=== PATIENT | male | born 1945 | race Caucasian/White ===

== ENCOUNTER → 2019-09-08 09:50 | Outpatient (BNVA) | payer MEDICARE, OTHER, SELFPAY | PROVIDERS: Family Provider Family Medicine; PCP Family Medicine; Visit Provider Urology | DX: N40.0 Benign prostatic hyperplasia without lower urinary tract symptoms (principal); Z12.5 Encounter for screening for malignant neoplasm of prostate; Z87.442 Personal history of urinary calculi | CPT/HCPCS: 81001 ==

== ENCOUNTER 2020-11-01 10:03 | Outpatient (CLI) | payer MEDICARE, OTHER, SELFPAY ==
--- NOTE | 2020-11-01 10:00 | XR_ITS ---
WS: [id number] KUB, AP view, 11/01/2020 Clinical Data: Z87.442 - Personal history of urinary calculi Comparison: KUB, 09/08/2018. Findings: No abnormal intraabdominal masses or calcifications are seen. There is no dilatated small bowel or ev idence of obstruction. There is fecal material throughout the colon. There are phleboliths in the true pelvis. There are pro static calcifications. XR/XR KUB [id number] Impression: Negative KUB.
== END 2020-11-01 10:04 | disposition home or self-care (01) ==
LOC: RAD 10:11
PROVIDERS: PCP Family Medicine; Visit Provider Urology
DX: Z87.442 Personal history of urinary calculi (principal)
CPT/HCPCS: 74018; 81003

== ENCOUNTER → 2021-07-03 07:52 | Outpatient (BNVA) | payer MEDICARE, OTHER, SELFPAY | PROVIDERS: PCP Family Medicine; Visit Provider Specialist | DX: G25.0 Essential tremor (principal); Z87.891 Personal history of nicotine dependence | CPT/HCPCS: 99204 ==

== ENCOUNTER → 2021-10-24 09:36 | Outpatient (BNVA) | payer MEDICARE, OTHER, SELFPAY | PROVIDERS: PCP Family Medicine; Visit Provider Specialist | DX: G25.0 Essential tremor (principal); Z87.891 Personal history of nicotine dependence | CPT/HCPCS: 99213; 99214 ==

== ENCOUNTER 2021-11-01 10:18 | Outpatient (CLI) | payer MEDICARE, OTHER, SELFPAY ==
--- NOTE | 2021-11-01 10:15 | XR_ITS ---
WS: [id number] KUB, AP view, 11/01/2021 Clinical Data: History of Kidney Stones Comparison: KUB, 11/01/2020. Findings: No abnormal intraabdominal masses or calcifications are seen. There is no dilatated small bowel or ev idence of obstruction. There are phleboliths in the true pelvis. The bladder is partly full. There is a minimal dextroscolio sis of the lumbar spine. XR/XR KUB 27795 Impression: Negative KUB.
== END 2021-11-01 10:19 | disposition home or self-care (01) ==
PROVIDERS: PCP Family Medicine; Visit Provider Urology
DX: Z87.442 Personal history of urinary calculi (principal); N40.0 Benign prostatic hyperplasia without lower urinary tract symptoms
CPT/HCPCS: 74018; 81003

== ENCOUNTER → 2022-04-23 10:07 | Outpatient (BNVA) | payer MEDICARE, OTHER, SELFPAY | PROVIDERS: PCP Family Medicine; Visit Provider Specialist | DX: G25.0 Essential tremor (principal); M54.9 Dorsalgia, unspecified | CPT/HCPCS: 99213 ==

== ENCOUNTER → 2022-05-14 10:07 | Outpatient (BNVA) | payer MEDICARE, OTHER, SELFPAY | PROVIDERS: PCP Family Medicine; Visit Provider Urology | DX: N40.0 Benign prostatic hyperplasia without lower urinary tract symptoms (principal); N20.9 Urinary calculus, unspecified | CPT/HCPCS: 51741; 51798; 81003; 99213 ==

== ENCOUNTER → 2022-06-28 10:50 | Outpatient (BNVA) | payer MEDICARE, OTHER, SELFPAY | PROVIDERS: PCP Family Medicine; Visit Provider Urology | DX: N40.0 Benign prostatic hyperplasia without lower urinary tract symptoms (principal); N20.9 Urinary calculus, unspecified | CPT/HCPCS: 51798; 99214 ==

== ENCOUNTER 2022-07-03 14:31 | Observation (INO) | payer MEDICARE, OTHER, SELFPAY ==
[2022-07-02 08:48] VITALS: BMI 31.6
--- NOTE | 2022-07-02 08:55 | ECG_ITS ---
[facility] Test Date: 2022-07-02 Pat Name: So Lag[place] Department: Room: Gender: Male Program Advisor: : 1945 Requested By: Chapo Hernández Order Number: [id number] Boyd MD: Ashanti Obando M.D. Measurements Intervals [place] Rate: 69 P: -19 [place]: 203 QRS: -71 QRSD: 104 T: 161 QT: 396 QTc: 426 Interpretive Statements SINUS RHYTHM PATTERN CONSISTENT WITH PULMONARY DISEASE LEFT ANTERIOR FASCICULAR BLOCK [QRS AXIS <= -45, QR IN I, RS IN II] NONSPECIFIC ST & T-WAVE ABNORMALITY No previous ECG available for comparison Electronically Signed On 07-03-2022 0:10:28 ELECTRONIC SYSTEMS SECURITY ASSESSMENT by Ashanti Obando M.D. [id number]
[2022-07-02 09:24] LABS: Basophils # 0.1 10^3/uL (0.0-0.1); Basophils % 0.6 %; Eosinophils # 0.3 10^3/uL (0.0-0.8); Eosinophils % 3.2 %; Hematocrit 45.2 % (42.0-52.0); Hemoglobin 14.9 g/dL (11.7-16.6); Lymphocytes # 2.2 10^3/uL (0.8-4.8); Lymphocytes % 25.6 %; Mean Corpuscular Volume 97.2 fl (80-94); Mean Platelet Volume 10.3 fL (7.4-10.4); Monocytes % 11.2 %; Neutrophils # 5.02 10^3/uL (1.8-7.7); Neutrophils % 59.2 %; Nucleated Red Blood Cells % 0 %; Platelet Count 192 10^3/cmm (130-400); Red Blood Count 4.65 10^6/uL (4.1-5.3); Red Cell Distribution Width 12.7 % (12.1-15.1); White Blood Count 8.5 10^3/uL (4.0-10.0)
[2022-07-02 09:32] LABS: Alanine Aminotransferase 18 U/L (0-41); Alkaline Phosphatase 82 U/L (40-130); Anion Gap 13.1 (5-19); Aspartate Amino Transferase 12 U/L (0-40); Blood Urea Nitrogen 30 mg/dL (8-23); Calcium 9.6 mg/dL (8.5-10.5); Carbon Dioxide 30 mmol/L (22-29); Chloride 99 mmol/L (98-107); Globulin 3.4 g/dL (1.3-4.6); Glucose 146 mg/dL (65-115); Osmolality Calculated 295 mOsm/kg (285-295); Potassium 4.1 mmol/L (3.5-5.1); Sodium 138 mmol/L (136-145); Total Bilirubin 0.3 mg/dL (0.15-1.2); Total Protein 7.4 g/dL (6.6-8.7)
--- NOTE | 2022-07-02 09:40 | P.ANESASSM_ITS ---
Pre-Anesthetic Assessment Height/Weight: Height 1.85 m Weight 108.862 kg Operation Date: 07/03/22 10:00 Proposed Procedures s CYSTOSCOPY TRANSURETHRAL RESECTION/VAPORIZATION PROSTATE 60129,N40.0(Not Applicable) - Chapo Hernández MD p CYSTOSCOPY TRANSURETHRAL RESECTION/VAPORIZATION PROSTATE 62258 N40.0(Not Applicable) - Chapo Hernández MD Familial anesthetic complications: none Social Tobacco and No alcohol occassional cigar use ( I don't inhale ) Exam alert, oriented x 3, clear to auscultation bilaterally and regular rate & rhythm Airway Mallampati: Class II Dentition: partials Pulmonary None reported CV/HEM Hypertension and Myocardial Infarction (20 years ago - balloon angiolasty, no further issues able to acheive 4 METS without symptoms) None reported Hepatic None reported GI None reported Metabolic Diabetes Mellitus (very well-controlled A1C < 6) and Hyperlipidemia Anesthetic Plan ASA status: 3 Anesthesia: General Risk of > 500 ml blood loss (7ml/kg in children): No Medications/Allergies Home Medications Medication Instructions Recorded Confirmed Last Taken Type aspirin 81 mg tablet,delayed 81 mg PO DAILY 09/08/19 07/02/22 06/28/22 History release (Adult Low Dose Aspirin) rosuvastatin 40 mg tablet 40 mg PO DAILY 09/08/19 07/02/22 07/01/22 History finasteride 5 mg tablet 5 mg PO DAILY 07/02/22 07/02/22 07/01/22 History losartan 50 mg-hydrochlorothiazide 0.5 tab PO PRN 07/02/22 07/02/22 07/01/22 History 12.5 mg tablet metformin 500 mg tablet 500 mg PO DAILY 07/02/22 07/02/22 07/02/22 History primidone 50 mg tablet 100 mg PO BID 07/02/22 07/02/22 07/02/22 History tamsulosin 0.4 mg capsule 0.4 mg PO DAILY 07/02/22 07/02/22 07/02/22 History Allergies Allergy/AdvReac Type Severity Reaction Status Date / Time piroxicam [From Feldene] Allergy unknown Verified 06/28/22 11:04 [facility] Anesthesia Medical History BPH loc w/o ur obs/LUTS Status post extracorporeal shock wave therapy Ureteral calculus Surgical History H/O colonoscopy H/O shoulder surgery right History of angioplasty x3 History of hand surgery left hand Family History Mother , at age 91 Thyroid disease Heart disease Myocardial infarction acute Father No problems noted. Social History Smoking and tobacco status: current some day smoker Alcohol intake: current Alcohol intake frequency: holidays/special occasions only Adopted: No Caregiver/support person: No Lives independently: No Household members: spouse Marital status: Current occupational status: retired History of recent travel: No Current gender identity: Male Data Anesthesia 07/02/22 09:01 07/02/22 09:01 Short CBC 07/02/22 Range/Units 09:01 WBC 8.5 (4.0-10.0) 10^3/uL Hgb 14.9 (11.7-16.6) g/dL Hct 45.2 (42.0-52.0) % MCV 97.2 H (80-94) fl Plt Count 192 (130-400) 10^3/cmm Neut % (Auto) 59.2 % Neut # (Auto) 5.02 (1.8-7.7) 10^3/uL BMP 07/02/22 09:01 Sodium 138 Potassium 4.1 Chloride 99 Carbon Dioxide 30 H BUN 30 H Creatinine 1.2 Glucose 146 H Calcium 9.6 Liver Function 07/02/22 Range/Units 09:01 Total Bilirubin 0.3 (0.15-1.2) mg/dL AST 12 (0-40) U/L ALT 18 (0-41) U/L Alkaline Phosphatase 82 (40-130) U/L Albumin 4.0 (3.5-5.2) g/dL Cardiac Studies: No Data to Display
[2022-07-03] VITALS (16 sets, daily range): BP systolic 119–167; BP diastolic 67–100; PULSE 49–79; RESP 16–18; TEMP 36.1–36.6; O2SAT 94–99
--- NOTE | 2022-07-03 08:44 | P.ANESUD_ITS ---
Pre-Anesthetic Update Pre-Anesthetic Assessment: Date of Surgery/Procedure: 07/03/22 Preop Heather gnosis: Refractory BPH/obstruction Proposed Procedure: Operation Date: 07/03/22 10:00 Proposed Procedures s CYSTOSCOPY TRANSURETHRAL RESECTION/VAPORIZATION PROSTATE 37997,N40.0(Not Applicable) - Chapo Hernández MD p CYSTOSCOPY TRANSURETHRAL RESECTION/VAPORIZATION PROSTATE 81711 N40.0(Not Applicable) - Chapo Hernández MD Any changes to Pre-Anesthetic Assessment?: No Last Intake: Intake Last Liquid Date 07/02/22 Last Liquid Time 22:00 Last Solid Date 07/02/22 Last Solid Time 16:00 Labs Last 48hrs: Short CBC 07/02/22 Range/Units 09:01 WBC 8.5 (4.0-10.0) 10^3/ uL Hgb 14.9 (11.7-16.6) g/dL Hct 45.2 (42.0-52.0) % MCV 97.2 H (80-94) fl Plt Count 192 (130-400) 10^3/c mm Neut % (Auto) 59.2 % Neut # (Auto) 5.02 (1.8-7.7) 10^3/u L BMP 07/02/22 09:01 Sodium 138 Potassium 4.1 Chloride 99 Carbon Dioxide 30 H BUN 30 H Creatinine 1.2 Glucose 146 H Calcium 9.6 Liver Function 07/02/22 Range/Units 09:01 Total Bilirubin 0.3 (0.15-1.2) mg/dL AST 12 (0-40) U/L ALT 18 (0-41) U/L Alkaline Phosphata se 82 (40-130) U/L Albumin 4.0 (3.5-5.2) g/dL Vitals: Temperature 97.7 F 07/03/22 08:32 Temperature Source Temporal Artery S can 07/03/22 08:32 Pulse Rate 62 07/03/22 08:32 Respiratory Rate 16 07/03/22 08:32 Blood Pressure 133/78 07/03/22 08:32 Blood Pressure Karime n 96 07/03/22 08:32 Pulse Oximetry 97 07/03/22 08:32 Oxygen Delivery Me thod 07/03/22 08:32 Exam: Pre-Anes Outpt Exam: alert, oriented x 3, clear to auscultation bilaterally and regular rate & rhythm Cardiac Studies: No Data to Display
[2022-07-03] MEDS: sodium chloride 0.9% 1,000 ML 30 ML IV (08:45)
[2022-07-03 08:46] LABS: Glucose Point of Care 143 mg/dL (70-110)
[2022-07-03] MEDS: levofloxacin-dextrose 5 % 500 MG/100 ML PREMIX 100 MG IV (09:02)
--- NOTE | 2022-07-03 09:03 | P.HPUD_ITS ---
Surgery/Procedure H&P Update DATE OF PROCEDURE: July 03, 2022 DATE H&P PERFORMED: 06/28/22 H&P UPDATE INFORMATION: I have reviewed H&P completed within last 30 days, I have examined patient prior to procedure, No changes to prior documentation and H&P is in [facility] EMR on date indicated PREOP DIAGNOSIS: Refractory BPH/obstruction PLANNED PROCEDURE: Operation Date: 07/03/22 10:00 Proposed Procedures s CYSTOSCOPY TRANSURETHRAL RESECTION/VAPORIZATION PROSTATE 67860,N40.0(Not Applicable) - Chapo Hernández MD p CYSTOSCOPY TRANSURETHRAL RESECTION/VAPORIZATION PROSTATE 21865 N40.0(Not Applicable) - Chapo Hernández MD
--- NOTE | 2022-07-03 09:03 | W.PM.OPSUD ---
Surgery/Procedure H&P Update DATE OF PROCEDURE: July 03, 2022 DATE H&P PERFORMED: 06/28/22 H&P UPDATE INFORMATION: I have reviewed H&P completed within last 30 days, I have examined patient prior to procedure, No changes to prior documentation and H&P is in [facility] EMR on date indicated PREOP DIAGNOSIS: Refractory BPH/obstruction PLANNED PROCEDURE: Operation Date: 07/03/22 10:00 Proposed Procedures s CYSTOSCOPY TRANSURETHRAL RESECTION/VAPORIZATION PROSTATE 44991,N40.0(Not Applicable) - Chapo Hernández MD p CYSTOSCOPY TRANSURETHRAL RESECTION/VAPORIZATION PROSTATE 59902 N40.0(Not Applicable) - Chapo Hernández MD
--- NOTE | 2022-07-03 09:12 | PM.OP ---
Operative Report Date of procedure: July 03, 2022 Pre-op diagnosis: Refractory BPH/obstruction Post-op diagnosis: Refractory BPH/obstruction Procedure done: 1. Cystoscopy, transurethral resection/vaporization prostate Specimens removed/disposition: Prostate sampling Pathology: Prostate sampling Surgeon: Edgar Estimated blood loss: Minimal Urine output: Not measured Complications: None Findings: Anesthesia: General Condition: Stable Disposition: PACU Intraoperative findings: Trilobar enlargement of the prostate With large intravesically protruding median lobe Wide open prostatic fossa at the completion of the procedure with good hemostasis and no residual/retained chips. 22 Salvadorean CBI catheter left indwelling Brief History: Alexandre yusuf pleasant 77-year-old white male with longstanding history of progressive bladder outlet obstructive symptoms and cystoscopically demonstrated trilobar enlargement the prostate with a very large intravesically protruding median lobe. Had been on medical therapy for some time including maximal medical therapy with DOUBLE dose TAMSULOSIN and finasteride Ultimately he elected to proceed with surgical intervention Procedure: After routine preoperative evaluation examination and obtaining of informed consent he was taken to the operating suite on 07/03/2022 where general anesthesia was administered without difficulty after appropriate timeout was performed, SCDs confirmed to be functioning, preoperative antibiotics administered, beta-coy protocol confirmed. Prepped and draped in usual sterile fashion in dorsolithotomy position paying careful attention to avoiding pressure points. 21 Salvadorean cystoscope with 30 degree lens was introduced into the urethra meatus and advanced into the bladder under videoscopy. The bladder was systematically examined. Orifices were identified well away from the bladder neck. Verumontanum was easily identified. Trilobar enlargement was confirmed with a large intravesically protruding median lobe. Urethra calibrated with [place] sounds and easily accommodated 30 Salvadorean. 2% lidocaine jelly was instilled into the urethr and a 25 Salvadorean continuous-flow resectoscope sheath with visual obturator in place was advanced into the bladder without difficulty. The gyrus bipolar system was utilized with super loop and button probe. Initial resection was begun at the bladder neck with resection of the intravesical protruding ball-valve median lobe. The resection was taken down to the bladder neck. Hemostasis was obtained at that point. Circumferential of the remaining intravesically protruding prostatic tissue was then resected down to the circular fibers of the bladder neck. The left lateral lobe from the bladder neck out to but not distal to the verumontanum was then resected from the 12:00 down to the 5 o'clock position in the right lateral lobe in the same longitudinal extent and depth from the 12:00 to 7 o'clock position. The floor the prostate was then harvested. The button probe was used intermittently for vaporization and improvement hemostasis. Prostatic fossa was inspected with the button probe for meticulous hemostasis, further vaporization of tissue. All chips were confirmed to be evacuated from the bladder (Isentropic evacuator). Hemostasis was confirmed to be good. Orifices and tissue distal to the verumontanum was not involved in the resection. Bladder was drained with a 22 Salvadorean three-way Bejarano catheter which irrigated well. 30 cc placed in the balloon and light CBI was initiated. Tolerated procedure well without complications and was awakened in the operating room and returned to the recovery room in stable condition. PLANS: 1. Admit to observation status 2. Anticipate removing the catheter tomorrow and if voids well with no significant bleeding discharge to home.
[2022-07-03] MEDS: lidocaine 2% Urojet 20 mL TOPICAL (09:48)
--- NOTE | 2022-07-03 13:49 | SUR.PHASEI ---
report given to STEPHEN Harrington on med surg. pt updated. at bedside. room isn't clean at this time.
[2022-07-03] MEDS: tamsulosin 0.4 mg Capsule PO (15:00)
[2022-07-03] MEDS: finasteride 5 mg Tablet PO (15:00)
--- NOTE | 2022-07-03 16:33 | ANE.PACU2 ---
Inpatient post-anesthesia follow up: Airway intact: Yes Vital signs: Temperature 97.2 F Pulse Rate 60 Respiratory Rate 17 Blood Pressure 136/78 Pulse Oximetry 99 Oxygen Delivery Me thod Room Air Oxygen Flow Rate Fraction of Inspir ed Oxygen Hydration adequate: Yes Nausea and vomiting: No Pain level: 1 Mental status: Baseline
[2022-07-03] MEDS: primidone 50 mg Tablet 100 MG PO (17:33)
[2022-07-03] MEDS: docusate sodium 100 mg Capsule PO (17:33)
[2022-07-03 21:08] LABS: Glucose Point of Care 198 mg/dL (70-110)
[2022-07-03] MEDS: sodium chloride 0.9% 1,000 ML 50 ML IV (22:25)
[2022-07-04] VITALS: BP 105/65; PULSE 68; RESP 17; TEMP 36.4; O2SAT 96
[2022-07-04 04:09] VITALS: BP 122/71; PULSE 68; RESP 15; TEMP 36.6; O2SAT 96
[2022-07-04 07:26] VITALS: BP 123/77; PULSE 67; RESP 14; TEMP 36.4; O2SAT 94
[2022-07-04] MEDS: docusate sodium 100 mg Capsule PO (08:54)
[2022-07-04] MEDS: atorvastatin 40 mg Tablet PO (08:54)
[2022-07-04] MEDS: primidone 50 mg Tablet 100 MG PO (08:54)
[2022-07-04] MEDS: tamsulosin 0.4 mg Capsule PO (08:54)
[2022-07-04] MEDS: metformin 500 mg Tablet PO (08:54)
[2022-07-04] MEDS: finasteride 5 mg Tablet PO (08:54)
--- NOTE | 2022-07-04 10:58 | PC.CHAP ---
Pastoral Care Encounter/Spiritual Assessment Type of Contact [] Declined tile fitter visit [] Patient/Family/Request visit [] Outpatient visit [] Follow-up visit [] Physician referral [] Code/Alert [x] Routine visit [] Staff referral [] Actively dying [] Patient sleeping [] Family support [] [] Out of room [] Palliative care [] [x] Receiving care in room [] Pre-surgical visit [] Trauma [] Long length of stay [] ICU visit [] Other: Relational/Emotional Strength [x] Patient feels connected with others/family/visitors/staff [] Distress [] Loneliness/isolation [] Abandonment Spirituality of Patient [x] Person of [place] [] Attends Synagogue of their [place] [x] Believes in Prayer [] Reads Bible or Jewish materials [] There are Spiritual issues to be addressed Information Delivery Analyst Interventions [x] Prayer [x] Active listening [x] Non-anxious presence [x] Spiritual/emotional support [] Crisis/trauma care [x] Spiritual counseling [] Bereavement support [] Provided bereavement packet [] Provided Bible/devotional materials [] Provided toy/stuffed animal, coloring book to patient or family member [] Provided Communion [] Anointing/Adrian [] Salvation [x] Completed spiritual assessment [] Other: Impact on Illness or Injury [] Angry [] Fearful [] Anxious [] Often cries [] Exhaustion [] Unable to work [] Unable to attend cheondoism [] Unable to walk/stand [] Unable to read [] Unable to drive [] Unable to eat/drink [] Unable to sleep [] Unable to be with family [] Patient intubated [] Other: 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
[2022-07-04 11:55] VITALS: BP 121/71; PULSE 69; RESP 15; TEMP 36.4; O2SAT 96
--- NOTE | 2022-07-04 12:35 | PM.DCS ---
Discharge Providers Date of Admission: 07/03/22 14:31 Date of Discharge: July 04, 2022 Attending Provider at Admission: Chapo Hernández MD Attending Provider at Discharge: Chapo Hernández MD Primary Care Provider: Juan José Mclaughlin MD Diagnoses at Discharge Discharge Diagnosis (1) BPH loc w/o ur obs/LUTS: Details from hospital stay: Status post TURP Status: Acute (2) Urolithiasis: Status: Acute Reason for Visit Reason for Visit: N40.0 Hospital Course Hospital Course He was admitted on the day of the procedure which went well. His prostate was very large with a extremely large intravesically protruding median lobe. At the completion the procedure he was wide open, hemostatic with good function of the catheter postop. Bejarano cath removed on postop day #1 but he failed to void spontaneously and the catheter was replaced with about 650 cc. Catheter was left indwelling he was discharged on the afternoon of postop day 1 in stable condition with leg bag and night bag. Plan was for a voiding trial next week with [facility]IC instruction. Physical Exam Narrative: Oriented no acute distress pleasant cooperative throughout exam Unlabored respiration Urine clear Neurologically intact Urinary Catheter Management: 3-way Urethral CBI: Cath Placed During This Visit: yes Reason for Continuing Indwelling Catheter: Perioperative Use in Selected Surgeries Urinary Catheter Date of Insertion: 07/04/22 Urinary Catheter Time of Insertion: 11:06 Discharge Data Studies Completed and Pending Completed Studies During Hospitalization Category Date Time Status Pathology: Surgical [PTH] Routine Pth 07/03/22 10:39 Completed Laboratory Results WBC 8.5 10^3/uL (4.0-10.0) 07/02/22 09:01 RBC 4.65 10^6/uL (4.1-5.3) 07/02/22 09:01 Hgb 14.9 g/dL (11.7-16.6) 07/02/22 09:01 Hct 45.2 % (42.0-52.0) 07/02/22 09:01 MCV 97.2 fl (80-94) H 07/02/22 09:01 MCH 32.0 pg (28.0-34.0) 07/02/22 09:01 MCHC 33.0 g/dL (30.0-36.0) 07/02/22 09:01 RDW 12.7 % (12.1-15.1) 07/02/22 09:01 Plt Count 192 10^3/cmm (130-400) 07/02/22 09:01 MPV 10.3 fL (7.4-10.4) 07/02/22 09:01 Neut % (Auto) 59.2 % 07/02/22 09:01 Lymph % (Auto) 25.6 % 07/02/22 09:01 [place] % (Auto) 11.2 % 07/02/22 09:01 Eos % (Auto) 3.2 % 07/02/22 09:01 Baso % (Auto) 0.6 % 07/02/22 09:01 Neut # (Auto) 5.02 10^3/uL (1.8-7.7) 07/02/22 09:01 Lymph # (Auto) 2.2 10^3/uL (0.8-4.8) 07/02/22 09:01 [place] # (Auto) 1.0 10^3/uL (0.2-0.9) H 07/02/22 09:01 Eos # (Auto) 0.3 10^3/uL (0.0-0.8) 07/02/22 09:01 Baso # (Auto) 0.1 10^3/uL (0.0-0.1) 07/02/22 09:01 Nucleated RBC % (auto) 0 % 07/02/22 09:01 Nucleated RBCs # 0.0 /100WBC 07/02/22 09:01 Sodium 138 mmol/L (136-145) 07/02/22 09:01 Potassium 4.1 mmol/L (3.5-5.1) 07/02/22 09:01 Chloride 99 mmol/L (98-107) 07/02/22 09:01 Carbon Dioxide 30 mmol/L (22-29) H 07/02/22 09:01 Anion Gap 13.1 (5-19) 07/02/22 09:01 BUN 30 mg/dL (8-23) H 07/02/22 09:01 Creatinine 1.2 mg/dL (0.7-1.2) 07/02/22 09:01 GFR Calculation Not Reportable 07/02/22 09:01 Glucose 146 mg/dL (65-115) H 12/13/22 09:01 POC Glucose 198 mg/dL (70-110) H 07/03/22 20:51 Calculated Osmolality 295 mOsm/kg (285-295) 07/02/22 09:01 Calcium 9.6 mg/dL (8.5-10.5) 07/02/22 09:01 Total Bilirubin 0.3 mg/dL (0.15-1.2) 07/02/22 09:01 AST 12 U/L (0-40) 07/02/22 09:01 ALT 18 U/L (0-41) 07/02/22 09:01 Alkaline Phosphatase 82 U/L (40-130) 07/02/22 09:01 Total Protein 7.4 g/dL (6.6-8.7) 07/02/22 09:01 Albumin 4.0 g/dL (3.5-5.2) 07/02/22 09:01 Globulin 3.4 g/dL (1.3-4.6) 07/02/22 09:01 Vitals Last Vital Signs Temp 97.6 F 07/04/22 11:55 Pulse 69 07/04/22 11:55 Resp 15 07/04/22 11:55 BP 121/71 07/04/22 11:55 Pulse Ox 96 07/04/22 11:55 O2 Del Method 07/04/22 11:55 Discharge Plan Discharge Patient Disposition: Home Condition: Stable Prescriptions: New levofloxacin 250 mg tablet 250 mg PO DAILY 4 Days Qty: 10 0RF Continued rosuvastatin 40 mg tablet 40 mg PO DAILY metformin 500 mg Tablet 500 mg PO DAILY losartan-hydrochlorothiazide 50-12.5 mg Tablet 0.5 tab PO PRN primidone 50 mg tablet 100 mg PO BID Rx Instructions: TAKE 2 TABLETS BY MOUTH AT 8 AM THEN TAKE 2 TABLETS BY MOUTH AT 8 PM tamsulosin 0.4 mg capsule 0.4 mg PO DAILY Rx Instructions: TAKE 1 CAPSULE BY MOUTH TWICE DAILY finasteride 5 mg tablet 5 mg PO DAILY Rx Instructions: TAKE 1 TABLET BY MOUTH DAILY Held aspirin [Adult Low Dose Aspirin] 81 mg tablet,delayed release (DR/EC) 81 mg PO DAILY Hold Instructions: Resume on 07/12/22. Discharge Orders: Discharge Order (Routine); Ordered 07/04/22 Ordered By: Chapo Hernández Referrals: Chapo Hernández MD [Physician] - Discharge Diet: Usual diet Discharge Activity: Limit activity as instructed Activity Restrictions/Additional Instructions: 1. Can use leg or night bag which ever you prefer for draining the Bejarano catheter. 2. Drink enough fluids to keep the urine relatively clear. It should not surprise you if it gets more bloody when you are active. 3. Voiding trial will be scheduled for late next week. We will also training on self-catheterization technique at that time as we discussed. 4. 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
--- NOTE | 2022-07-04 13:31 | PC.NURSE ---
Patient education done with patient and spouse at bedside with leg bag provided. Patient teach back with snow and leg back with care. Verbally acknowledges discharge plans and follow up. All questions answered at this time.
[2022-07-04 13:32] VITALS: BP 121/71; PULSE 69; RESP 15; TEMP 36.4; O2SAT 96
== END 2022-07-04 13:33 | disposition home or self-care (01) ==
LOC: MEDSURG 07-04 02:45
PROVIDERS: Admitting Provider Urology; PCP Family Medicine; Visit Provider Urology
PROC: 0TJB8ZZ Inspection of Bladder, Via Natural or Artificial Opening Endoscopic (ICD-10-PCS; CPT 52000; principal; 2022-07-03 09:50)
PROC: 0VT08ZZ Resection of Prostate, Via Natural or Artificial Opening Endoscopic (ICD-10-PCS; CPT 52601; 2022-07-03 09:50)
DX: N40.1 Benign prostatic hyperplasia with lower urinary tract symptoms (principal); N13.8 Other obstructive and reflux uropathy; I10 Essential (primary) hypertension; I25.2 Old myocardial infarction; E11.9 Type 2 diabetes mellitus without complications; E78.5 Hyperlipidemia, unspecified; Z79.82 Long term (current) use of aspirin; Z79.84 Long term (current) use of oral hypoglycemic drugs; F17.210 Nicotine dependence, cigarettes, uncomplicated
CPT/HCPCS: 52601; 36415; 36416; 51702; 80053; 82962; 85025; 88305; 93005; G0378; J1100; J1956; J2405; J2704; J2710; J3010; J3490; J7030

== ENCOUNTER → 2022-07-17 11:52 | Outpatient (BNVA) | payer MEDICARE, OTHER, SELFPAY | PROVIDERS: PCP Family Medicine; Visit Provider Urology | DX: Z98.890 Other specified postprocedural states (principal); N20.9 Urinary calculus, unspecified; N40.0 Benign prostatic hyperplasia without lower urinary tract symptoms | CPT/HCPCS: 99024 ==

== ENCOUNTER → 2022-10-24 09:25 | Outpatient (BNVA) | payer MEDICARE, OTHER, SELFPAY | PROVIDERS: PCP Family Medicine; Visit Provider Urology | DX: N40.0 Benign prostatic hyperplasia without lower urinary tract symptoms (principal); N20.9 Urinary calculus, unspecified | CPT/HCPCS: 51798; 99213 ==

== ENCOUNTER → 2023-04-23 09:26 | Outpatient (BNVA) | payer MEDICARE, OTHER, SELFPAY | PROVIDERS: PCP Family Medicine; Visit Provider Specialist | DX: G25.0 Essential tremor | CPT/HCPCS: 99213 ==

== ENCOUNTER → 2023-06-10 09:07 | Outpatient (BNVA) | payer MEDICARE, OTHER, SELFPAY | PROVIDERS: PCP Family Medicine; Visit Provider Specialist | DX: G25.0 Essential tremor (principal) | CPT/HCPCS: 99213 ==

== ENCOUNTER → 2024-06-15 12:55 | Outpatient (BNVA) | payer MEDICARE, OTHER, SELFPAY | PROVIDERS: PCP Family Medicine; Visit Provider Specialist | DX: R25.1 Tremor, unspecified (principal); R03.0 Elevated blood-pressure reading, without diagnosis of hypertension | CPT/HCPCS: 99214 ==

== ENCOUNTER → 2024-06-30 09:13 | Outpatient (BNVA) | payer MEDICARE, OTHER, SELFPAY | PROVIDERS: PCP Family Medicine; Referring Provider Family Medicine; Visit Provider Dermatology | DX: L82.1 Other seborrheic keratosis (principal); C44.319 Basal cell carcinoma of skin of other parts of face | CPT/HCPCS: 13132; 17311; 99202 ==

== ENCOUNTER → 2024-07-02 11:01 | Outpatient (BNVA) | payer MEDICARE, OTHER, SELFPAY | PROVIDERS: PCP Family Medicine; Visit Provider Dermatology | DX: Z48.1 Encounter for planned postprocedural wound closure (principal) | CPT/HCPCS: 15240 ==

== ENCOUNTER → 2024-07-29 10:50 | Outpatient (BNVA) | payer MEDICARE, OTHER, SELFPAY | PROVIDERS: PCP Family Medicine; Visit Provider Dermatology | DX: Z48.817 Encounter for surgical aftercare following surgery on the skin and subcutaneous tissue (principal); L57.8 Other skin changes due to chronic exposure to nonionizing radiation; L81.4 Other melanin hyperpigmentation; L82.1 Other seborrheic keratosis; Z85.828 Personal history of other malignant neoplasm of skin | CPT/HCPCS: 17000; 17110; 99213 ==

== ENCOUNTER → 2024-11-30 13:26 | Outpatient (BNVA) | payer MEDICARE, OTHER, SELFPAY | PROVIDERS: PCP Family Medicine; Visit Provider Dermatology | DX: L82.1 Other seborrheic keratosis (principal); M72.1 Knuckle pads; L81.4 Other melanin hyperpigmentation; L57.8 Other skin changes due to chronic exposure to nonionizing radiation; Z85.828 Personal history of other malignant neoplasm of skin; B07.8 Other viral warts; R20.8 Other disturbances of skin sensation; L29.89 Other pruritus; L53.8 Other specified erythematous conditions; L82.0 Inflamed seborrheic keratosis; L57.0 Actinic keratosis | CPT/HCPCS: 17000; 17110; 99213 ==

== ENCOUNTER → 2024-12-31 09:39 | Outpatient (BNVA) | payer MEDICARE, OTHER, SELFPAY | PROVIDERS: PCP Family Medicine; Visit Provider Nurse Practitioner Family | DX: L81.4 Other melanin hyperpigmentation (principal); M72.1 Knuckle pads; L57.8 Other skin changes due to chronic exposure to nonionizing radiation; X32.XXXA Exposure to sunlight, initial encounter; Z85.828 Personal history of other malignant neoplasm of skin; B07.8 Other viral warts; R20.8 Other disturbances of skin sensation; R23.8 Other skin changes; L29.89 Other pruritus | CPT/HCPCS: 17110; 99213 ==

== ENCOUNTER → 2025-02-02 14:23 | Outpatient (BNVA) | payer MEDICARE, OTHER, SELFPAY | PROVIDERS: PCP Family Medicine; Visit Provider Nurse Practitioner Family | DX: L57.8 Other skin changes due to chronic exposure to nonionizing radiation (principal); X32.XXXA Exposure to sunlight, initial encounter; L81.4 Other melanin hyperpigmentation; Z85.828 Personal history of other malignant neoplasm of skin; B07.8 Other viral warts; R20.8 Other disturbances of skin sensation; R23.8 Other skin changes; L29.89 Other pruritus | CPT/HCPCS: 17110; 99213 ==

== ENCOUNTER → 2025-03-08 08:01 | Outpatient (BNVA) | payer MEDICARE, OTHER, SELFPAY | PROVIDERS: PCP Family Medicine; Visit Provider Nurse Practitioner Family | DX: L57.8 Other skin changes due to chronic exposure to nonionizing radiation (principal); X32.XXXA Exposure to sunlight, initial encounter; L81.4 Other melanin hyperpigmentation; Z85.828 Personal history of other malignant neoplasm of skin; B07.8 Other viral warts; R20.8 Other disturbances of skin sensation | CPT/HCPCS: 17110; 99213 ==

== ENCOUNTER 2025-03-28 12:33 | Emergency (ER) | payer MEDICARE, OTHER, SELFPAY ==
[2025-03-28 12:39] VITALS: BP 114/76; PULSE 93; RESP 18; TEMP 36.7; O2SAT 92; BMI 32.3
--- NOTE | 2025-03-28 12:41 | XR_ITS ---
WS: [id number] Portable AP upright chest, 03/28/2025 Clinical Data: Weakness Comparison: None. Findings: No nodules, masses or effusions are seen. The heart is normal. The pulmonary vascularity is not increased. No pneumonia or pneumothorax is seen. The aortic arch and descending thoracic aorta show minimal tortuosity. There is an orthopedic anchor in the right humeral head. Monitor leads are on the chest wall. XR/XR chest 1V portable [id number] Impression: Atherosclerosis.
--- NOTE | 2025-03-28 12:44 | W.ED.WEAKNES ---
HPI - Weakness General: Chief complaint: Weakness Stated complaint: weakness Time Seen by Provider: 03/28/25 12:38 History of Present Illness: 79-year-old male with a history of obesity, hypertension, diabetes and coronary artery disease who presents emergency room By ambulance with generalized weakness. He said yesterday about 4:00 he suddenly started feeling very weak. This is a started right after he took his blood pressure meds. Says he has not been able to walk since yesterday because he was so tired and weak. He takes his blood pressure medicine as needed. Says assumedly took the blood pressure medicine yesterday started feeling weak. He has had some cough. He said shortly after he took the medicine when the episode happened he lost control of his bladder. He does have history of BPH. No known fevers. No chest pain. No abdominal pain. No vomiting. Related Data Home Medications ?Medication ?Instructions ?Recorded ?Confirmed aspirin 81 mg tablet,delayed 81 mg PO DAILY 09/08/19 06/15/24 release (Adult Low Dose Aspirin) Held on 07/04/22. Instructions: Resume on 07/12/22. rosuvastatin 40 mg tablet 40 mg PO DAILY 09/08/19 06/15/24 losartan 50 mg-hydrochlorothiazide 0.5 tab PO PRN 07/02/22 06/15/24 12.5 mg tablet metformin 500 mg tablet 500 mg PO DAILY 07/02/22 06/15/24 Previous Rx's ?Medication ?Instructions ?Recorded finasteride 5 mg tablet 5 mg PO DAILY #90 tabs 10/15/22 tamsulosin 0.4 mg capsule 0.4 mg PO DAILY #180 caps 10/24/22 propranolol 20 mg tablet See Rx Instructions .Route 10/07/24 .COMPLEX #270 tabs primidone 50 mg tablet 50 mg PO BID PRN breakthrough 10/08/24 tremors 90 days #180 tabs carbidopa 25 mg-levodopa 100 mg 1 tab PO TID #270 tabs 11/10/24 tablet cefdinir 300 mg capsule 300 mg PO BID 7 days #14 caps 03/28/25 dexamethasone 6 mg tablet 6 mg PO DAILY 5 days #5 tabs 03/28/25 doxycycline hyclate 100 mg capsule 100 mg PO BID 7 days #14 caps 03/28/25 Allergies Allergy/AdvReac Type Severity Reaction Status Date / [facility] Allergy unknown Verified 06/15/24 14:06 Review of Systems Narrative: Constitutional symptoms: Negative except as documented in HPI. Skin symptoms: Negative except as documented in HPI. Eye symptoms: Negative except as documented in HPI. ENMT symptoms: Negative except as documented in HPI. Respiratory symptoms: Negative except as documented in HPI. Cardiovascular symptoms: Negative except as documented in HPI. Gastrointestinal symptoms: Negative except as documented in HPI. Genitourinary symptoms: Negative except as documented in HPI. Musculoskeletal symptoms: Negative except as documented in HPI. Neurologic symptoms: Negative except as documented in HPI. Psychiatric symptoms: Negative except as documented in HPI. Endocrine symptoms: Negative except as documented in HPI. PFSH ED PFSH: Medical History (Updated 03/28/25 @ 15:08 by Grisel Landin MD) Lower urinary tract symptoms (LUTS) HTN (hypertension) Status post extracorporeal shock wave therapy BPH loc w/o ur obs/LUTS Ureteral calculus Surgical History H/O colonoscopy H/O shoulder surgery right History of hand surgery left hand History of angioplasty x3 Family History Mother , at age 91 Thyroid disease Heart disease Myocardial infarction acute Father No problems noted. Social History Smoking and tobacco/nicotine status: former use of tobacco/nicotine Alcohol intake: current Alcohol intake frequency: holidays/special occasions only Substance/Drug Use: never Adopted: No Caregiver/support person: No Lives independently: No Household members: spouse Marital status: Current occupational status: retired Current gender identity: Male Physical Exam Narrative: EXAM NARRATIVE: General: Alert, no acute distress. Skin: Warm, dry. Head: Normocephalic, atraumatic. Neck: Supple, trachea midline. Eye: Extraocular movements are intact. Ears, nose, mouth and throat: mucosa moist. Cardiovascular: Regular, Normal peripheral perfusion. Respiratory: Lungs are clear to auscultation, respirations are non-labored, breath sounds are equal, Symmetrical chest wall expansion. Gastrointestinal: Soft, Nontender, Non distended Musculoskeletal: Normal ROM, no deformity. Neurological: Alert and oriented, No focal neurological deficit observed. Psychiatric: Cooperative, appropriate mood & affect. Course Vital Signs: Vital signs: Vital Signs Temperature 98.1 F 03/28/25 12:39 Pulse Rate 77 03/28/25 15:09 Respiratory Rate 16 03/28/25 15:09 Blood Pressure 120/65 03/28/25 15:09 Pulse Oximetry 94 03/28/25 15:09 Oxygen Delivery Me thod Room Air 03/28/25 15:09 MDM - Weakness Medical Decision Making Medical decision making: Differential diagnosis for patient presenting with generalized weakness including but not limited to and based on the above HPI, review of systems and physical exam: Sepsis. Dehydration. Renal failure. Electrolyte abnormalities. Anemia. Congestive heart failure. Hypotension. Coronary syndrome. Hepatitis. Cirrhosis. Infections such as pneumonia, urinary tract infection, [place] illness, Cellulitis, Viral infections including influenza and Covid-19. Workup: labwork and lab/exam driven imaging ordered to evaluate, rule in and rule out above pathologies. EKG: Time 1252. Rate 89. Normal sinus rhythm, No ST-T changes, no ectopy, normal DC & QRS intervals, This was reviewed and interpreted by myself the ER physician at 1258 Chest x-ray: No acute process. No infiltrate. No pneumothorax. This was reviewed and interpreted by myself the emergency room physician. I also reviewed the radiology report. Lab Review: Laboratory results were reviewed and interpreted by myself the emergency room physician. Mild leukocytosis with white count of 12.5. Slightly left shifted with neutrophil percent of 81%. Flu COVID and RSV are negative. Urinalysis has 2+ bacteria but only 0-5 whites leukocyte esterase is negative. He does have a productive cough at times although his chest x-ray is negative. Urinalysis does show concentration with a specific gravity of 1.024 which would indicate some dehydration. Fluids are being given. Also BUN and creatinine are slightly elevated over his baseline at 15 and 1.1 his creatinine normally runs around 0.6 or 0.7 I reviewed the patient's medical record. 79-year-old male with a history of obesity, hypertension, diabetes and coronary artery disease Reexamination: Patient remained stable. No increased work of breathing. No altered mental status. No focal motor deficits. Assessment and plan: Dehydration Bronchitis Urinary tract infection Generalized weakness ? Normal saline bolus. IV Rocephin and azithromycin. Would cover urinary and lung etiologies of possible infection. Also IV Decadron. Also his weakness could just be related to taking his blood pressure medicine and his blood pressure being lower than it normally is. Iatrogenic in nature. - Discharged home - Discussed plan with patient. Answered any questions. - Evaluation and treatment of this problem were appropriate in the emergency setting. Lab Data 03/28/25 14:08 03/28/25 14:08 Radiology Impressions Chest X-Ray 03/28/25 12:41 Impression: Atherosclerosis. Laboratory Results WBC 12.46 10^3/uL (3.29-11.43) H 03/28/25 14:08 RBC 4.75 10^6/uL (3.85-5.65) 03/28/25 14:08 Hgb 15.00 g/dL (11.27-16.99) 03/28/25 14:08 Hct 44.6 % (37-53) 03/28/25 14:08 MCV 93.9 fl (82-101) 03/28/25 14:08 MCH 31.6 pg (27-33) 03/28/25 14:08 MCHC 33.6 g/dL (30-55) 03/28/25 14:08 RDW 13.7 % (12.1-15.1) 03/28/25 14:08 Plt Count 151 10^3/cmm (157-399) L 03/28/25 14:08 MPV 10.5 fL (7.4-10.4) H 03/28/25 14:08 Neut % (Auto) 80.9 % 03/28/25 14:08 Lymph % (Auto) 7.7 % 03/28/25 14:08 [place] % (Auto) 10.4 % 03/28/25 14:08 Eos % (Auto) 0.1 % 03/28/25 14:08 Baso % (Auto) 0.3 % 03/28/25 14:08 Neut # (Auto) 10.08 10^3/uL (1.8-7.7) H 03/28/25 14:08 Lymph # (Auto) 1.0 10^3/uL (0.8-4.8) 03/28/25 14:08 [place] # (Auto) 1.3 10^3/uL (0.2-0.9) H 03/28/25 14:08 Eos # (Auto) 0.0 10^3/uL (0.0-0.8) 03/28/25 14:08 Baso # (Auto) 0.0 10^3/uL (0.0-0.1) 03/28/25 14:08 Nucleated RBC % (auto) 0 % 03/28/25 14:08 Nucleated RBCs # 0.0 /100WBC 03/28/25 14:08 Sodium 136 mmol/L (136-145) 03/28/25 14:08 Potassium 3.9 mmol/L (3.5-5.1) 03/28/25 14:08 Chloride 99 mmol/L (98-107) 03/28/25 14:08 Carbon Dioxide 24 mmol/L (22-29) 03/28/25 14:08 Anion Gap 16.9 (5-19) 03/28/25 14:08 BUN 15 mg/dL (8-23) 03/28/25 14:08 Creatinine 1.1 mg/dL (0.7-1.2) 03/28/25 14:08 GFR Calculation Not Reportable 03/28/25 14:08 Glucose 164 mg/dL (65-115) H 03/28/25 14:08 Calculated Osmolality 286 mOsm/kg (285-295) 03/28/25 14:08 Lactic Acid 1.6 mmol/L (0.5-2.2) 03/28/25 14:08 Calcium 9.2 mg/dL (8.5-10.5) 03/28/25 14:08 Total Bilirubin 0.7 mg/dL (0.15-1.2) 03/28/25 14:08 AST 14 U/L (0-40) 03/28/25 14:08 ALT 14 U/L (0-41) 03/28/25 14:08 Alkaline Phosphatase 69 U/L (40-130) 03/28/25 14:08 Troponin T Baseline 15 ng/L (0-15) 03/28/25 14:08 NT-Pro-B Natriuret Pep 746 pg/mL (0-450) H 03/28/25 14:08 Total Protein 7.2 g/dL (6.6-8.7) 03/28/25 14:08 Albumin 4.3 g/dL (3.5-5.2) 03/28/25 14:08 Globulin 2.9 g/dL (1.3-4.6) 03/28/25 14:08 Urine Color Yellow (Yellow) 03/28/25 14:16 Urine Appearance Clear (CLEAR) 03/28/25 14:16 Urine pH 5.5 (5-7) 03/28/25 14:16 Ur Specific [place] 1.024 (1.005-1.030) 03/28/25 14:16 Urine Protein 2+ (Negative) A 03/28/25 14:16 Urine Glucose (UA) Negative (Normal) 03/28/25 14:16 Urine Ketones 1+ (Negative) H 03/28/25 14:16 Urine Blood Negative (Negative) 03/28/25 14:16 Urine Nitrate Negative (Negative) 03/28/25 14:16 Urine Bilirubin Negative (Negative) 03/28/25 14:16 Urine Urobilinogen 1.0 mg/dL (Negative) 03/28/25 14:16 Ur Leukocyte Esterase Negative (Negative) 03/28/25 14:16 Urine RBC 0-2 /hpf (0-2) 03/28/25 14:16 Urine WBC 0-5 /hpf (0-5) 03/28/25 14:16 Ur Squamous Epith Cells 0-5 /hpf (0-5) 03/28/25 14:16 Amorphous Sediment Not Reportable 03/28/25 14:16 Urine Bacteria 2+ /hpf (NONE) H 03/28/25 14:16 Hyaline Casts 2.87 /lpf 03/28/25 14:16 Influenza A (PCR) Negative (Negative) 03/28/25 12:55 Influenza Type B (PCR) Negative (Negative) 03/28/25 12:55 RSV (PCR) Negative (Negative) 03/28/25 12:55 SARS-CoV-2 (PCR) Negative (Negative) 03/28/25 12:55 All radiology interpretation(s) finalized by discharge Discharge Plan Discharge Patient Disposition: Home Clinical Impression: Weakness, Bronchitis, Acute UTI, Dehydration Condition: Stable Prescriptions: New doxycycline hyclate 100 mg capsule 100 mg PO BID 7 Days Qty: 14 0RF dexamethasone 6 mg tablet 6 mg PO DAILY 5 Days Qty: 5 0RF cefdinir 300 mg capsule 300 mg PO BID 7 Days Qty: 14 0RF No Action aspirin [Adult Low Dose Aspirin] 81 mg tablet,delayed release (DR/EC) 81 mg PO DAILY rosuvastatin 40 mg tablet 40 mg PO DAILY tamsulosin 0.4 mg capsule 0.4 mg PO DAILY Qty: 180 3RF Rx Instructions: TAKE 1 CAPSULE BY MOUTH TWICE DAILY finasteride 5 mg tablet 5 mg PO DAILY Qty: 90 3RF Rx Instructions: TAKE 1 TABLET BY MOUTH DAILY propranolol 20 mg tablet See Rx Instructions .ROUTE .COMPLEX Qty: 270 3RF Dose Instruction: TAKE 1 TABLET BY MOUTH THREE TIMES DAILY Rx Instructions: TAKE 1 TABLET BY MOUTH THREE TIMES DAILY primidone 50 mg tablet 50 mg PO BID PRN (Reason: breakthrough tremors) 90 Days Qty: 180 3RF carbidopa-levodopa 25-100 mg tablet 1 tab PO TID Qty: 270 3RF metformin 500 mg Tablet 500 mg PO DAILY losartan-hydrochlorothiazide 50-12.5 mg Tablet 0.5 tab PO PRN Discharge Orders: Discharge ED (Routine); Ordered 03/28/25 Ordered By: Grisel Landin Referrals: Juan José Mclaughlin MD [Primary Care Provider, Family Practice] Discharge Diet: Usual diet Discharge Activity: Increase activity as tolerated Patient Instructions: Urinary Tract Infection in Men (ED), Acute Bronchitis (ED), Opioid Safety, Pain Management, Patient Portal & Akbar Instructions Activity Restrictions/Additional Instructions: Thank you for choosing [facility] for your healthcare needs today. You have been screened and evaluated and felt safe for discharge. Health conditions do change or evolve sometimes and as such it is important that you follow up with your Primary Doctor to be re checked, 3-5 days is a general good time frame for follow up. You are always welcome to return to the ED for re assessment if your symptoms are worsening or you have new concerns Print Language: Micronesian Coding Level of Care Code ED [employer] for Lucia Evans
[2025-03-28 12:52] VITALS: PULSE 91; O2SAT 92
--- NOTE | 2025-03-28 12:52 | ECG_ITS ---
[email or web address] Date: 2025-03-28 Pat Name: So [place] Department: Room: Gender: Male Project Systems Engineer: : 1945 Requested By: Grisel Gutierrez Order Number: [id number] Nix MD: Ramesh Boudreaux M.D. Measurements Intervals [place] Rate: 89 P: 38 DE: 181 QRS: -79 QRSD: 98 T: 9 QT: 397 QTc: 484 Interpretive Statements SINUS RHYTHM WITH SINUS ARRHYTHMIA LEFT ANTERIOR FASCICULAR BLOCK [QRS AXIS <= -45, QR IN I, RS IN II] NONSPECIFIC ST-T-WAVE ABNORMALITY Compared to ECG 07/02/2022 09:10:26 No significant changes Electronically Signed On 03-30-2025 20:22:29 CDT by Ramesh Boudreaux M.D. [id number] [id number]
--- NOTE | 2025-03-28 13:08 | PC.NURSE ---
this nurse assisted with urinal placement for ua, pt tried, couldn't go. PT aware of need for urine sample, urinal left with pt. call light within reach.
[2025-03-28 13:37] VITALS: BP 128/71; PULSE 76; RESP 16; O2SAT 91
[2025-03-28 13:46] LABS: Respiratory Syncytial Virus Ce NEGATIVE (Negative); SARS-CoV-2 PCR NEGATIVE (Negative)
--- NOTE | 2025-03-28 14:02 | ECG_ITS ---
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 Measurements Intervals [place] Rate: 78 P: 23 MD: 189 QRS: -75 QRSD: 96 T: 247 QT: 367 QTc: 419 Interpretive Statements SINUS RHYTHM WITH SINUS ARRHYTHMIA LEFT ANTERIOR FASCICULAR BLOCK [QRS AXIS <= -45, QR IN I, RS IN II] MODERATE T-WAVE ABNORMALITY, CONSIDER LATERAL ISCHEMIA [-0.1+ mV T-WAVE IN I/aVL/V5/V6] MODERATE T-WAVE ABNORMALITY, CONSIDER INFERIOR ISCHEMIA [-0.1+ mV T-WAVE IN II/aVF] Compared to ECG 03/28/2025 12:52:42 No significant change Electronically Signed On 03-30-2025 22:58:02 CDT by Ramesh Boudreaux M.D. [id number] [id number]
[2025-03-28 14:21] LABS: Hematocrit 44.6 % (37-53); Hemoglobin 15.00 g/dL (11.27-16.99); Mean Corpuscular HGB Conc 33.6 g/dL (30-55); Mean Corpuscular Hemoglobin 31.6 pg (27-33); Mean Corpuscular Volume 93.9 fl (82-101); Nucleated Red Blood Cells % 0 %; Platelet Count 151 10^3/cmm (157-399); Red Blood Count 4.75 10^6/uL (3.85-5.65); White Blood Count 12.46 10^3/uL (3.29-11.43)
[2025-03-28 14:28] LABS: Glucose Urine UA Negative (Normal); Nitrate Urine Negative (Negative); Specific Gravity, Urine 1.024 (1.005-1.030)
[2025-03-28 14:39] LABS: Lactic Sepsis W/Reflex 1.6 mmol/L (0.5-2.2)
[2025-03-28 14:40] LABS: Troponin(5th) Baseline 15 ng/L (0-15)
[2025-03-28 14:55] LABS: Alanine Aminotransferase 14 U/L (0-41); Albumin Level 4.3 g/dL (3.5-5.2); Alkaline Phosphatase 69 U/L (40-130); Anion Gap 16.9 (5-19); Aspartate Amino Transferase 14 U/L (0-40); Blood Urea Nitrogen 15 mg/dL (8-23); Calcium 9.2 mg/dL (8.5-10.5); Carbon Dioxide 24 mmol/L (22-29); Chloride 99 mmol/L (98-107); Creatinine Clr Calc Pharmacy 71.1605; Globulin 2.9 g/dL (1.3-4.6); Glucose 164 mg/dL (65-115); NT Pro B Type Natriuretic Pept 746 pg/mL (0-450); Osmolality Calculated 286 mOsm/kg (285-295); Potassium 3.9 mmol/L (3.5-5.1); Sodium 136 mmol/L (136-145); Total Protein 7.2 g/dL (6.6-8.7)
[2025-03-28 15:09] VITALS: BP 120/65; PULSE 77; RESP 16; O2SAT 94
[2025-03-28] MEDS: cefTRIAXone 1,000 mg SDV 1000 MG IVP (15:23)
[2025-03-28 15:58] VITALS: BP 128/78; PULSE 70; RESP 15; O2SAT 93
[2025-03-28 16:26] VITALS: BP 142/79; PULSE 80; RESP 16; O2SAT 96
== END 2025-03-28 16:26 | disposition home or self-care (01) ==
PROVIDERS: Emergency Provider Emergency Medicine; PCP Family Medicine
DX: R53.1 Weakness (principal); J40 Bronchitis, not specified as acute or chronic; N39.0 Urinary tract infection, site not specified; E86.0 Dehydration; Z79.82 Long term (current) use of aspirin; Z79.84 Long term (current) use of oral hypoglycemic drugs; Z11.52 Encounter for screening for COVID-19; Z87.891 Personal history of nicotine dependence; I10 Essential (primary) hypertension
CPT/HCPCS: 36415; 71045; 80053; 81001; 83605; 83880; 84484; 85025; 87040; 87637; 93005; 96374; 96375; 99285; J0456; J0696; J1100; J7030; J7050

== ENCOUNTER → 2025-06-06 11:16 | Outpatient (BNVA) | payer MEDICARE, OTHER, SELFPAY | PROVIDERS: PCP Family Medicine; Visit Provider Nurse Practitioner Family | DX: L73.8 Other specified follicular disorders (principal); L82.1 Other seborrheic keratosis; L57.8 Other skin changes due to chronic exposure to nonionizing radiation; X32.XXXA Exposure to sunlight, initial encounter; L81.4 Other melanin hyperpigmentation; L82.0 Inflamed seborrheic keratosis; L53.8 Other specified erythematous conditions; R20.8 Other disturbances of skin sensation; D48.5 Neoplasm of uncertain behavior of skin; L57.0 Actinic keratosis | CPT/HCPCS: 11102; 17000; 17110; 99213 ==

== ENCOUNTER → 2025-06-21 08:30 | Outpatient (BNVA) | payer MEDICARE, OTHER, SELFPAY | PROVIDERS: PCP Family Medicine; Visit Provider Specialist | DX: G20.A1 Parkinson's disease without dyskinesia, without mention of fluctuations (principal); G25.0 Essential tremor; R03.0 Elevated blood-pressure reading, without diagnosis of hypertension | CPT/HCPCS: 99214 ==

== ENCOUNTER → 2025-06-22 11:22 | Outpatient (BNVA) | payer MEDICARE, OTHER, SELFPAY | PROVIDERS: PCP Family Medicine; Visit Provider Dermatology | DX: L90.5 Scar conditions and fibrosis of skin (principal); L57.8 Other skin changes due to chronic exposure to nonionizing radiation; Z85.828 Personal history of other malignant neoplasm of skin; D22.5 Melanocytic nevi of trunk | CPT/HCPCS: 11602; 99213 ==